=== PATIENT | male | born 1955 | race Caucasian/White ===

== ENCOUNTER → 2020-11-16 11:26 | Outpatient (CLI) | payer OTHER, SELFPAY ==
--- NOTE | 2020-11-16 11:31 | DI.RAD.S_ITS ---
PROCEDURE: XR CERVICAL SPINE 4V OR 5V INDICATIONS: cervical radiculopathy TECHNIQUE: 8 views of the cervical spine acquired. COMPARISON: [facility], CR, XR CERVICAL SPINE 6+ VIEWS, 01/03/2018, 8:34. FINDINGS: Bones: No acute fracture. Straightening of the normal lordotic curvature. Moderate narrowing of the C5-C6 and C6-C7 disc spaces. Multilevel degenerative endplate sclerosis and spurring. Diffuse facet arthropathy. On the left, moderate to severe bony foraminal stenosis at C3-C4, and mild bony foraminal narrowing at C5-C6 and C6-C7. On the right, diffuse mild to moderate bony foraminal narrowing throughout the cervical spine. Soft tissues: No prevertebral soft tissue swelling. IMPRESSION: Straightening of the normal lordotic curvature. Cervical spondylosis and facet arthropathy as above, most pronounced at C5-C6 and C6-C7. Dictated by: Rafi Gracia M.D. on 11/16/2020 at 14:22 Approved by: Rafi Gracia M.D. on 11/16/2020 at 14:24
== END ==
PROVIDERS: PCP Nurse Practitioner; Referring Provider Physical Medicine & Rehabilitation; Visit Provider Physical Medicine & Rehabilitation
DX: M47.22 Other spondylosis with radiculopathy, cervical region (principal)
CPT/HCPCS: 72050; 99214

== ENCOUNTER → 2020-11-26 07:07 | Outpatient (CLI) | payer OTHER, SELFPAY ==
--- NOTE | 2020-11-26 07:08 | DI.MRI.S_ITS ---
PROCEDURE: MR CERVICAL SPINE WO CON INDICATIONS: Left C6-7 Cervical radiculopathy TECHNIQUE: Noncontrast sagittal T1 spin echo and T2 fast spin echo, sagittal STIR, foraminal oblique sagittal T2 fast spin echo, and axial gradient echo or T2 fast spin echo through the cervical spine. COMPARISON: None. FINDINGS: Image quality: Excellent. Alignment and Curvature: There is normal bony alignment. Bone Marrow: Reactive endplate changes noted adjacent to the C6-C7 disc.. Spinal Cord: Visualized spinal cord has normal size and signal. No cerebellar tonsillar herniation. Paraspinous Soft Tissues: No paravertebral masses. Prevertebral soft tissues are normal in thickness. C2-C3: Loss of disc signal. Moderate right and mild left facet hypertrophy. No central stenosis. Mild bilateral neural foraminal narrowing. No neural compression. C3-C4: Loss of disc signal. Mild, diffuse disc bulge. Mild right and moderate left facet hypertrophy. Moderate bilateral uncovertebral joint hypertrophy. Moderate narrowing of the central canal. Severe bilateral neural foraminal narrowing with compression of the exiting C4 nerve roots. C4-C5: Loss of disc signal. Mild, diffuse disc bulge. Small central disc protrusion. Mild right and moderate left facet hypertrophy. Mild bilateral uncovertebral joint hypertrophy. Moderate narrowing of the central canal. Moderate bilateral neural foraminal narrowing. No neural compression. C5-C6: Loss of disc signal and slight loss of disc height. Mild, diffuse disc bulge. Mild bilateral facet hypertrophy. Bilateral uncovertebral joint hypertrophy. Moderate narrowing of the central canal. Severe bilateral neural foraminal narrowing with compression of the exiting C6 nerve roots. C6-C7: Loss of disc signal. Mild, diffuse disc bulge. Mild bilateral facet hypertrophy. Moderate right and mild left uncovertebral joint hypertrophy. Moderate narrowing of the central canal. Severe right and moderate left neural foraminal narrowing with compression of the exiting right C7 nerve root. C7-T1: Normal appearance. IMPRESSION: 1. Multilevel degenerative disc disease. 2. Multilevel facet and uncovertebral arthropathy. 3. No severe central canal narrowing. 4. Severe bilateral C3-C4 and C5-C6 neural foraminal narrowing with compression of the exiting bilateral C4 nerve roots and exiting bilateral C6 nerve roots. Severe right C6-C7 neural foraminal narrowing with compression of the exiting right C7 nerve root. Dictated by: Lisa Pena MD, PhD on 11/26/2020 at 10:34 Approved by: Lisa Pena MD, PhD on 11/26/2020 at 11:27
== END ==
PROVIDERS: PCP Nurse Practitioner; Referring Provider Nurse Practitioner; Visit Provider Physical Medicine & Rehabilitation
DX: M50.11 Cervical disc disorder with radiculopathy, high cervical region (principal); M47.22 Other spondylosis with radiculopathy, cervical region; M48.02 Spinal stenosis, cervical region
CPT/HCPCS: 72141

== ENCOUNTER → 2020-12-14 14:55 | Outpatient (CLI) | payer OTHER, SELFPAY ==
[2020-12-14 16:59] LABS: COVID19 -Nasal RAPID Negative (Negative)
== END ==
PROVIDERS: PCP Nurse Practitioner; Visit Provider Physical Medicine & Rehabilitation
DX: Z01.812 Encounter for preprocedural laboratory examination (principal); Z20.822 Contact with and (suspected) exposure to COVID-19
CPT/HCPCS: 87635; C9803

== ENCOUNTER 2020-12-15 10:48 | Outpatient (CLI) | payer OTHER, SELFPAY ==
[2020-12-15] VITALS (8 sets, daily range): BP systolic 120–149; BP diastolic 75–97; PULSE 82–99; RESP 13–20; TEMP 36.3; O2SAT 95–99
--- NOTE | 2020-12-15 10:50 | DI.RAD.S_ITS ---
PROCEDURE: PAIN C/T INTERLAMINAR INJECT INDICATIONS: SPINAL STENOSIS COMPARISON: [facility], MR, MR CERVICAL SPINE WO CON, 11/26/2020, 7:42. [facility], CR, XR CERVICAL SPINE 4V OR 5V, 11/16/2020, 11:44. FINDINGS: Fluoroscopic spot filming was performed to verify placement of spinal needles at the C6-C7 level(s), as labeled on the films. Appropriate location(s) of the needle tip(s) was confirmed by injection of iodinated contrast. IMPRESSION: Fluoroscopy for pain management. Dictated by: Minor Cantrell M.D. on 12/15/2020 at 13:38 Approved by: Minor Cantrell M.D. on 12/15/2020 at 13:40
[2020-12-15] MEDS: MIDAZOLAM 5 MG/5 ML VIAL IV (11:55)
[2020-12-15] MEDS: fentaNYL 100 MCG/2 ML INJ 50 MCG IV (11:55)
--- NOTE | 2020-12-15 12:19 | P.PCN_ITS ---
Date/Time/Diagnoses Date of procedure: 12/15/20 Time of procedure: 12:19 Pre-procedure diagnosis: 1. CERVICAL STENOSIS, 2. CERVICAL HNP WITH UPPER EXTREMITY RADICULAR FEATURES Post-procedure diagnosis: same Procedure Notes Procedure: 1. FLUORSCOPICALLY GUIDED CONTRAST CONTROLLED INTERLAMINAR EPIDURAL STEROID INJECTION - C6/7 TL KSENIA Indications: Edward is referred by LUIS CARLOS Yuan for treatment of Cervical HNP with Upper Extremity Paresthesias. Physician: Irvin Cain Total Fluoroscopy time (seconds): 37 Total sedation minutes: 19 Complications: none Procedure in detail & Post-procedure care: FINDINGS Cervical Stenosis due to disc deterioration and nerve root irritation and nerve root irritation DESCRIPTION OF PROCEDURE Fluoroscopically guided, contrast-controlled C6/7 translaminar epidural steroid injection with conscious sedation. Following review of allergy and review of potential side effects and complications, including, but not necessarily limited to, infection, allergic reaction, local tissue breakdown, temporary as well as permanent nerve injury, stroke, paralysis, and possible , the patient indicated that patient understood and agreed to proceed. An informed consent document was signed by the patient, witnessed by a nurse, and placed in the patient's chart. Additionally, other treatment options including modalities, medications, and physical therapy were reviewed with the patient. After review of previous anaesthesic history and IV conscious sedation the patient was deemed safe to proceed with today?s procedure with IV conscious sedation as ASA class II designation. Safety time-out was performed to confirm patient ID, procedure to be performed and site of procedure. IV sedation was accomplished with a combination of 2mg of Versed and 50mcg of Fentanyl administered by the RN after DO order, titrated to patient comfort during the course of the procedure while the patient remained responsive to all verbal commands. In the prone position, following sterile prep and drape of the cervical region, the C6/7 translaminar space was identified fluoroscopically. The skin was anesthetized via a 25-gauge 1.5-inch needle with 1% lidocaine solution. At this point, a 25-gauge, 2.5-inch short bevel spinal needle was atraumatically introduced and advanced under fluoroscopic guidance into epidural space at the C6/7 translaminar space. Depth was confirmed on lateral view. Radiological data, including multiple fluoroscopic views of the cervical spine, reveal a spinal needle at the C6/7 translaminar space. Lateral views then show placement of the needle in the epidural space. Subsequent views show contrast material flowing superiorly and inferiorly in the epidural space. DSA fluoroscopy with live contrast injection, once again, confirmed no vascular or intrathecal uptake. At this point, using loss of resistance technique with saline and air, the epidural space was entered. Following negative aspiration, injection of appr oximately 1.5 cc of Isovue-200 with live fluoroscopy in the AP view confirmed epidural flow in the epidural space without vascular or intrathecal uptake observed. Subsequently, a test dose of 1 cc of 1% lidocaine solution was injected and patient was observed for two minutes without signs or symptoms of complications, including abdominal pain, shortness of breath, bilateral upper or lower extremity weakness, nausea and vomiting, prior to steroid injection. At this point, 3cc or 30mg of dexamethasone was then injected without incident. The patient tolerated the procedure well without signs or symptoms of complications prior to being transferred to the recovery area for further monitoring, The patient was then transferred to the recovery area where they were observed for an appropriate period of time after the injection. The patient reported a VAS score of 6 prior to the procedure and a post-procedure VAS of 0. POST OP INSTRUCTIONS The patient was provided a Pain Log to continue to record their response to the target-specific procedure prior to follow-up visit with the referring provider. Additionally, specific post-injection care instructions and a contact number to our office were provided if concerns arise regarding possible complications associated with the procedure are suspected.
[2020-12-15] MEDS: BUPIVACAINE 0.25% (PF) VIAL 2 ML INJ (12:23)
[2020-12-15] MEDS: DEXAMETHASONE 10 MG/ML VIAL 30 MG INJ (12:24)
--- NOTE | 2020-12-15 16:59 | PC.NURSE ---
unable to document isovue administration in NOV due to pharmacy override. pr recieved 3ml during procedure administered by dr ball
== END 2020-12-15 12:40 | disposition home or self-care (01) ==
LOC: RAD 10:49
PROVIDERS: PCP Nurse Practitioner; Referring Provider Physical Medicine & Rehabilitation; Visit Provider Physical Medicine & Rehabilitation
DX: M48.02 Spinal stenosis, cervical region (principal); M50.123 Cervical disc disorder at C6-C7 level with radiculopathy
CPT/HCPCS: 62321; 99152; J1100; J2250; J3010

== ENCOUNTER → 2021-02-15 12:35 | Outpatient (CLI) | payer OTHER, SELFPAY ==
--- NOTE | 2021-02-15 12:36 | DI.RAD.S_ITS ---
PROCEDURE: XR LUMBAR SPINE MIN 4V INDICATIONS: BACK PAIN TECHNIQUE: 5 views of the lumbar spine were acquired, including bilateral oblique views. COMPARISON: None. FINDINGS: Bones: No acute fracture. Multilevel degenerative endplate sclerosis and spurring. Diffuse facet arthropathy. Disc spaces grossly preserved. Mild bilateral hip joint degeneration with associated subchondral sclerosis and spurring. Mild spurring at both SI joints without ankylosis or erosions. Soft tissues: Overlying bowel gas pattern is normal. No suspicious soft tissue calcifications. Oblique images: No pars defects. IMPRESSION: Mild spondylitic changes as above. Diffuse facet arthropathy Dictated by: Rafi Gracia M.D. on 02/15/2021 at 13:53 Approved by: Rafi Gracia M.D. on 02/15/2021 at 13:56
== END ==
PROVIDERS: PCP Nurse Practitioner; Referring Provider Physical Medicine & Rehabilitation; Visit Provider Physical Medicine & Rehabilitation
DX: M54.9 Dorsalgia, unspecified (principal); M47.816 Spondylosis without myelopathy or radiculopathy, lumbar region; M16.0 Bilateral primary osteoarthritis of hip; M47.22 Other spondylosis with radiculopathy, cervical region; M48.062 Spinal stenosis, lumbar region with neurogenic claudication
CPT/HCPCS: 72110; 99214

== ENCOUNTER → 2021-02-20 08:36 | Outpatient (CLI) | payer OTHER, SELFPAY ==
--- NOTE | 2021-02-20 08:38 | DI.MRI.S_ITS ---
PROCEDURE: MR LUMBAR SPINE WO CON INDICATIONS: Lumbar radiculopathy TECHNIQUE: Noncontrast sagittal T1 spin echo and T2 fast echo, sagittal STIR, axial T1 and T2 fast spin echo through the lumbar spine. In cases with scoliosis, additional coronal T2 fast spin echo may be performed. COMPARISON: None. FINDINGS: Image quality: Excellent. Alignment and Curvature: There is normal bony alignment. Bone Marrow: Marrow is of normal overall signal. No acute vertebral body compression fractures. Spinal Cord: Conus medullaris terminates at the T12-L1 level. Visualized cord demonstrates normal signal and size. Paraspinous Soft Tissues: No paravertebral masses. T12-L1: No canal stenosis or foraminal stenosis. L1-L2: No canal stenosis or foraminal stenosis. L2-L3: Mild facet hypertrophy. No canal stenosis or foraminal stenosis. L3-L4: Facet hypertrophy. Borderline canal stenosis. No foraminal stenosis. L4-L5: Mild disc bulge. Facet and ligament hypertrophy. Mild canal stenosis. Right foraminal annulus tear plus mild disc bulge subjacent to the exiting right L4 nerve root. Mild bilateral foraminal narrowing. L5-S1: Right paracentral annulus tear plus disc bulge. Facet hypertrophy. No canal stenosis or foraminal stenosis. IMPRESSION: 1. Multilevel facet arthropathy. 2. Canal stenosis is borderline at L3-L4 and mild at L4-L5. 3. At L4-L5, there is a right foraminal annulus tear plus mild disc bulge subjacent to the exiting right L4 nerve root. Question: Does this patient have right L4 radicular symptoms? Dictated by: Ted Monroy M.D. on 02/22/2021 at 7:58 Approved by: Ted Monroy M.D. on 02/22/2021 at 8:08
== END ==
PROVIDERS: PCP Nurse Practitioner; Referring Provider Physical Medicine & Rehabilitation; Visit Provider Physical Medicine & Rehabilitation
DX: M48.062 Spinal stenosis, lumbar region with neurogenic claudication (principal); M47.26 Other spondylosis with radiculopathy, lumbar region; M51.16 Intervertebral disc disorders with radiculopathy, lumbar region
CPT/HCPCS: 72148

== ENCOUNTER → 2021-04-21 09:47 | Outpatient (CLI) | payer OTHER, SELFPAY ==
[2021-04-21 12:23] LABS: COVID19 -Nasal RAPID Negative (Negative)
== END ==
PROVIDERS: PCP Nurse Practitioner; Visit Provider Nurse Practitioner
DX: Z20.822 Contact with and (suspected) exposure to COVID-19 (principal); Z01.812 Encounter for preprocedural laboratory examination
CPT/HCPCS: 87635

== ENCOUNTER 2021-04-23 08:06 | Inpatient (IN) | payer OTHER, SELFPAY ==
[2021-04-20 08:55] VITALS: BMI 34.4
[2021-04-23] VITALS (20 sets, daily range): BP systolic 107–172; BP diastolic 61–103; PULSE 69–111; RESP 7–18; TEMP 35.8–37.2; O2SAT 89–98; BMI 34.4
[2021-04-23] MEDS: GABAPENTIN 300 MG CAPSULE PO (08:24)
[2021-04-23] MEDS: LACTATED RINGERS 1,000 ML 42 ML IV ×2 (08:24→10:26)
[2021-04-23] MEDS: ACETAMINOPHEN 325 MG TABLET 975 MG PO (08:24)
--- NOTE | 2021-04-23 08:40 | PM.PREOP ---
Pre-operative Note COVID-19 COVID-19 status: Negative Result date/Date tested (Pos, Neg/Pending): 04/21/21 Interval Note History & Physical reviewed/Exam performed by Physician: Yes Changes to H&P: No
[2021-04-23] MEDS: CEFAZOLIN 1 GM VIAL 2 GM IV ×2 (09:13→16:51)
--- NOTE | 2021-04-23 09:36 | SUR.OPER ---
Supine, head on gel donut. Arms padded with gel pads, tucked at sides, towel roll under shoulders, shoulders taped in traction to foot of bed. Safety belt at thigh. Legs uncrossed.
[2021-04-23] MEDS: BUPIVACAINE 0.25% W/ EPI 30 ML VIAL INJ (12:16)
--- NOTE | 2021-04-23 12:27 | DI.RAD.S_ITS ---
PROCEDURE: XR CERVICAL SPINE 2V OR 3V INDICATIONS: C4-5, C5-6, C6-7 ACDF TECHNIQUE: 3 view(s) of the cervical spine were acquired. COMPARISON: [facility], CR, XR CERVICAL SPINE 4V OR 5V, 11/16/2020, 11:44. [facility], MR, MR CERVICAL SPINE WO CON, 11/26/2020, 7:42. FINDINGS: 3 intraoperative fluoroscopy images demonstrate discectomy and anterior fusion at C4-C5, C5-C6 and C6-C7. IMPRESSION: Discectomy and anterior fusion in the lower cervical spine. Dictated by: Minor Cantrell M.D. on 04/23/2021 at 13:06 Approved by: Minor Cantrell M.D. on 04/23/2021 at 13:08
--- NOTE | 2021-04-23 12:27 | P.OP_ITS ---
Operative Date/Time/Diagnoses Date of procedure: 04/23/21 Time of procedure: 09:00 Pre-op diagnosis: 1. C4-5, C5-6, C6-7 spinal stenosis 2. C4-5, C5-6, C6-7 spondylosis with radiculopathy Post-op diagnosis: same Procedure & Clinicians Procedure: 1. C4-5 C5-6 C6-7 anterior cervical diskectomy and fusion 2. C4-5 C5-6 C6-7 anterior interbody cage placement 3. C4-5 C5-6 C6-7 anterior instrumentation with plate and screw placement in C4-C5-C6 and C7 vertebrae 4. Utilization of microsurgical technique and operating microscope Same procedure as scheduled: Yes Indications: Patient has been having chronic neck pain and worsening cervical radiculopathy. Patient failed multiple conservative management with worsening pain weakness and numbness in her upper extremity. Patient has been having difficulty performing activity of daily living. After discussing risks benefits of treatment options, patient elected proceed with surgery. Surgeon: Dc Mehta Radial Drill Press Operator: Anurag Price Anesthesia Type: General Operative Notes Closure Type: primary Specimen(s): none sent Prosthetic devices, grafts, tissues, transplants, or devices: Globus Extend plate, PEEK cages Applied: catheter Estimated Blood Loss (mL): 50 Blood products transfused: none Procedure in detail: Patient was seen in the preoperative area. Risks and benefits of the surgery was discussed with the patient. Operative consent was obtained and placed in the chart. Patient was then taken to the operative room. Prophylactic antibiotic was given less than 0.5 hr prior to skin incision. General anesthesia was administered. Patient was placed into a supine position on her radiolucent table. Bilateral shoulders were taped down to allow proper C- arm imaging. Anterior cervical area was prepped and draped in a sterile fashion. Time-out was performed at this time. Using lateral C-arm imaging, the level between C4 and C7 was identified and marked on patient's neck. A oblique incision from midline towards medial border of sternocleidomastoid muscle was made. The platysma muscle was incised in line with skin incision. Metzenbaum scissor was used to develop the plane between the medial border of sternocleidomastoid d and the strap muscles medially. The carotid sheath and its contents were identified and protected behind the hand- held retractor during the entire case. The plane between the carotid sheath and strap muscles was developed with Metzenbaum scissors. Dissection was made down to the level of the anterior cervical fascia. Longus colli muscle was incised on the anterior aspect of vertebral bodies bilaterally from C4-C7. Spinal needle was placed into the C4-5 disc space and confirmed with lateral C-arm imaging. Using microsurgical technique and operative microscope, anterior cervical diskectomy was performed at C4-5 C5-6 and C6-7 level. This was done by removing the disc material, removing the anterior and posterior osteophytes posterior longitudinal ligaments along with performing bilateral foraminotomies at all 3 levels. Patient was found to have severe central and foraminal stenosis at all 3 levels. Patient's stenosis was fully decompressed after decompression was completed. After the diskectomy was completed, 3 anterior interbody cages were obtained. The cages were packed with globus via cell bone grafting material. One cage each along with the bone grafting material was then packed into the interbody spaces from C4-C7 with one cage into each interbody level. After the cages were placed, the anterior cervical plate was stabilized to the C4-C7 vertebrae using 2 screws at each each level. Total 8 screws were placed. After confirming placement of the hardware with AP and lateral C-arm imaging, the screws were locked into the plate using the locking mechanism and torque limiting screwdriver. After the hardware was placed and confirmed with AP and lateral C-arm imaging, the wound was irrigated with sterile normal saline. The platysma muscle and the subcutaneous tissue was closed with 2-0 Vicryl. The skin was closed with 4-0 Monocryl and Steri-Strips. Patient tolerated the procedure well. Patient was transferred recovery room in stable condition. There were no complications. Complications: none Post-operative Condition: stable Disposition: PACU Plan for aftercare: Admit to inpatient hospital
[2021-04-23] MEDS: OXYCODONE IR 5 MG TABLET PO ×2 (13:36→14:09)
[2021-04-23] MEDS: ONDANSETRON 4 MG/2 ML INJ IV (13:39)
[2021-04-23] MEDS: HYDROMORPHONE 2 MG INJ IV ×2 (13:39→13:47)
--- NOTE | 2021-04-23 14:55 | SUR.PHASEI ---
PACU: REPORT GIVEN TO ROSS Knott OVER THE PHONE. ALL QUESTIONS ANSWERED TO SATISFACTION. PATIENT TRANSF TO RM 213 WITH ALL BELONGINGS ON 2L/NC AND CPAP. TOLERATED WELL. MET ROSS Cevallos AT BEDSIDE FOR FACE TO FACE HANDOFF. VS, SAT STABLE WITH NC AND CPAP IN PLACE. SCD'S ON, BED IN LOW POSITION AND LOCKED. CALL LIGHT IN REACH.
[2021-04-23] MEDS: SODIUM CHLORIDE 0.9% 1,000 ML 100 ML IV (16:50)
[2021-04-23] MEDS: OXYCODONE IR 5 MG TABLET 10 MG PO ×2 (16:51→20:31)
[2021-04-23] MEDS: DOCUSATE 100 MG CAPSULE PO (20:31)
[2021-04-23] MEDS: METFORMIN HCL 500 MG TABLET 1000 MG PO (20:31)
[2021-04-23] MEDS: SENNOSIDES 8.6 MG TABLET 17.2 MG PO (20:31)
[2021-04-23] MEDS: HYDROMORPHONE 0.5 MG INJ IV (23:56)
[2021-04-24] VITALS (8 sets, daily range): BP systolic 120–176; BP diastolic 66–95; PULSE 66–119; RESP 14–18; TEMP 36.1–36.9; O2SAT 89–95
[2021-04-24] MEDS: OXYCODONE IR 5 MG TABLET 10 MG PO ×3 (01:13→11:30)
[2021-04-24] MEDS: CEFAZOLIN 1 GM VIAL 2 GM IV (01:14)
[2021-04-24] MEDS: ACETAMINOPHEN 325 MG TABLET 650 MG PO ×3 (01:14→22:45)
[2021-04-24] MEDS: GABAPENTIN 300 MG CAPSULE 600 MG PO (01:15)
[2021-04-24] MEDS: HYDROMORPHONE 0.5 MG INJ IV ×2 (04:18→06:36)
[2021-04-24] MEDS: lisinopriL 5 MG TABLET PO (08:06)
[2021-04-24] MEDS: GLIMEPIRIDE 2 MG TABLET 4 MG PO (08:06)
[2021-04-24] MEDS: ATORVASTATIN 20 MG TABLET PO (08:07)
[2021-04-24] MEDS: hydrOXYzine pamoate 25 MG CAPSULE PO (08:07)
[2021-04-24] MEDS: DOCUSATE 100 MG CAPSULE PO ×2 (08:07→22:45)
[2021-04-24] MEDS: METFORMIN HCL 500 MG TABLET 1000 MG PO ×2 (08:07→22:45)
--- NOTE | 2021-04-24 09:10 | CM.DANOTE ---
Addendum entered by Svetlana Piedra LPN 04/25/21 12:25: A check in this morning shows that pt was not cleared yesterday for d/c and the d/c order was cancelled. Pt today doing much better. [facility] worked with him this morning and has cleared him for home setting. Dr. Mehta has been here and ok'd the d/c. P: home with support from Kellie. She will pick him up today. Addendum entered by Svetlana Piedra LPN 04/24/21 10:07: Orth[facility] is here and has ok'd pt for d/c to home today when cleared by PT. PT and OT are ordered and will be seeing pt this morning as per discussion with therapy team in R[place]. Addendum entered by Svetlana Piedra LPN 04/24/21 09:18: Met with pt briefly;introduced self and role. Pt is found lying in bed, breakfast tray in front of him. Appears groggy. Says he has not been out of bed since the surgery. He does confirm his plan and says Kellie will be picking him up. She will come when I call her. P: home when stable for same with support as noted. Will follow prn Insurance: [employer] Care Plan Service [facility] Admission status: in review: per [facility] [place] Original Note: Discharge Planning/Care Management DCP: assessment: case received, EMR reviewed. Pt is a 66 year old male who admits 04/23 for a scheduled spinal/cervical surgery. Surgeon: Dr. Mehta No therapy notes are yet available. Will check in with pt and confirm his pre-op plan of home with support of his sister and his spouse (legally ) Kellie. CM Discharge Assessment Start: 04/24/21 09:08 Freq: Status: Active Protocol: Document 04/24/21 09:08 ITV (Rec: 04/24/21 09:09 ITV [id number]) Discharge Planning Assessment Advance Directives? Yes Advance Directives on File No History Provided By Medical Record Has Patient been admitted in last 30 No days? Prior Living Arrangements RV Household Members none Review Status In Process Pre-Anesthesia Assessment Start: 04/20/21 08:55 Freq: Status: Complete Protocol: Document 04/20/21 08:55 CAB (Rec: 04/20/21 09:39 [facility] [id number]) Pre-Anesthesia Assessment Preferred Name Bill Patient Information Reviewed Via Phone Assessment Assessment Completed With Patient H&P Completed Within 30 Days Yes Comment Labs/EKG done, not here, surgeon has, COVID screen- needs to schedule Primary Care Provider Suman Yuan Seen Specialist in Last 12 Months Yes Specialist Seen Orthopedist,Urologist,Other Comment Pain specialist Primary Language Maori Asbestos Abatement Technician Required No Height 177.8 cm Weight 108.862 kg Body Mass Index (BMI) 34.4 Hearing Ability Hard of Hearing,Use of Hearing Aid Visual Assist None Dentition Type Teeth, Natural Present Barriers to Learning Auditory Other Aids Yes: CPAP Hx Anesthesia Reactions No Hx Family Anesthesia Reaction No Hx Malignant Hyperthermia No Hx Blood Transfusions No Anesthesia Review Requested No alcohol intake current alcohol intake frequency holidays/special occasions only Smoking Status Former smoker how long ago did patient quit smoking Quit approx 2013 Substance Use Type does not use Pain Present Pain Reported Musculoskeletal Symptoms Abnormal Gait,Back Pain, Difficulty Walking,Joint Pain, Limited Range of Motion,Neck Pain,Numbness,Radiating Pain into Limb,Tingling History of Falling (Recent or History of No ) Patient is completely paralyzed or No completely immobile Mental Status Oriented to own ability Is patient on oxygen? No Does patient have WATT/SOB No Hx Sleep Apnea Yes CPAP/BIPAP use prescribed and used routinely Will Bring CPAP/BIPAP DOS Yes Currently Taking a Beta [place] No Can You Climb a Flight of Stairs Without No: Pt feels r/t SOB deconditioning, pain Hx Chest Pain No Hx SOB No Hx Syncope or Dizziness No Anti-Coagulant Therapy No Has a Income Tax Manager No Cardiac Testing No Hx Pacemaker/ICD No Pacemaker Rep Required? No Diet Type At Home Regular dysphagia No Urinary Catheter Present No Hx Urinary Self Catheterization No Diabetes Yes HgbA1C 6.2 Comment A1c per pt Hx Drug Resistant Organism No Presence of External or Internal Medical Yes: CPAP, bilat eye lens, Devices hearing aids Have you had any close contact with No someone diagnosed with COVID-19? Marital Status Lives With none Prior Living Arrangements RV Support System Sibling(s),Spouse Does the Patient Have Assistance After Yes: Sister and available Surgery to assist w/care at DC Patient Discharge Plan Description Return Home Comment Pt not advised on length of stay per surgeon Feels Safe in Current Environment Yes Been Physically Hurt or Threatened By a No Person in Current Environment Do you have thoughts of harming yourself None or others? Are you currently considering suicide? No Do you have a plan to hurt yourself or No Plan others? Do You Have Any Spiritual Beliefs That No May Affect Your HC Choices? Do You Have Any Cultural Practices That No May Affect Your HC Choices? Comment Mosque Who Can We Speak to About Patient's Care Family, friends Identifying Code for Release of Patient Declines to issue Information Health Care Proxy/Next of Kin Ramy (sister) Health Care Proxy Emergency Contact Name Kellie (-currently ) Emergency Contact Advance Directives? Yes Advance Directives on File No Requested Patient Bring Advanced Yes Directives DOS Power of Medical Staff Assistant Yes Power of Medical Staff Assistant Name Ramy (sister) Power of Medical Staff Assistant PAC Instructions Bring CPAP/BIPAP,Diabetes instructions,Durable medical equipment,Medications to take/ avoid,Nasal antibiotic,No ETOH /petroleum product on skin DOS ,NPO,Post-op transportation, Pre-surgical wash,Sensory aids ,Sturdy shoes/comfortable clothes,Do not bring valuables and remove jewelry
--- NOTE | 2021-04-24 09:20 | PC.NURSE ---
checked patients BS at 7:30 and it was 190
--- NOTE | 2021-04-24 09:44 | PM.DS.1 ---
History of Present Illness History of Present Illness Date Patient Seen: 04/24/21 Time Patient Seen: 09:44 Chief complaint: Neck pain Narrative: The patient is complaining of moderate neck pain this morning, we are changing his pain medications to better control his pain. He denies any fevers, chills, night sweats. He denies any numbness or tingling in his bilateral upper extremities. He has not worked with physical therapy yet. Overall he is feeling okay and would like to discharge home today if he is safe. He is having some difficulty swallowing but is able to tolerate oral liquids. Discharge Providers Provider Date of admission: 04/23/21 08:06 Discharge Date: 04/24/21 Primary care physician: SKYLER Hudson Consults: 04/23/21 14:52 Consult to Occupational Therapy Evaluate & Treat Comment: Physician Instructions: Evaluate and treat Consult to Physical Therapy Evaluate & Treat Comment: Physician Instructions: Evaluate and Treat Discharge provider: Savanna Ragsdale PA-C Summary Hospital Course Discharge Diagnosis: 1. C4-5, C5-6, C6-7 spinal stenosis 2. C4-5, C5-6, C6-7 spondylosis with radiculopathy Hospital Course: 1. C4-5 C5-6 C6-7 anterior cervical diskectomy and fusion 2. C4-5 C5-6 C6-7 anterior interbody cage placement 3. C4-5 C5-6 C6-7 anterior instrumentation with plate and screw placement in C4-C5-C6 and C7 vertebrae 4. Utilization of microsurgical technique and operating microscope Same procedure as scheduled: Yes Indications: Patient has been having chronic neck pain and worsening cervical radiculopathy. Patient failed multiple conservative management with worsening pain weakness and numbness in her upper extremity. Patient has been having difficulty performing activity of daily living. After discussing risks benefits of treatment options, patient elected proceed with surgery. Surgeon: Dc Mehta Estimator Project Manager: Anurag Price Anesthesia Type: General Operative Notes Closure Type: primary Specimen(s): none sent Prosthetic devices, grafts, tissues, transplants, or devices: Globus Extend plate, PEEK cages Applied: catheter Estimated Blood Loss (mL): 50 Blood products transfused: none Status at Discharge Cognitive/behavioral status at discharge: oriented Functional status at discharge: independent ambulation Overall status at discharge: patient is progressing back to baseline Exam Vital Signs (past 8 hours): - 04/24/21 04:05 08/21/21 07:19 04/24/21 08:06 Temperature 98.1 F 97.0 F L Pulse Rate 110 H 97 H Respiratory Rate 16 14 Blood Pressure 176/95 H 149/86 H 149/86 H Pulse Oximetry 92 92 Oxygen Delivery Method Nasal Cannula,CPAP Oxygen Flow Rate 0 Narrative Exam Narrative: This 66-year-old male, resting comfortably in bed, no acute distress. Incision is clean, dry, intact. Bilateral upper extremities with normal motor function. Sensation is intact grossly to light touch in bilateral upper extremities. Soft cervical collar is in place. [facility] Medical History Arthritis BPH w urinary obs/LUTS Cervical radiculopathy Degenerative tear of acetabular labrum of left hip Depression Diabetes Facet arthropathy, cervical Glucosuria Greater trochanteric bursitis of right hip Hearing impaired HLD (hyperlipidemia) HTN (hypertension) Kidney stones Lumbar stenosis with neurogenic claudication WOODY on CPAP Sciatica Surgical History H/O elbow surgery H/O hand surgery H/O shoulder surgery H/O: knee surgery History of arthroscopy of left shoulder History of bunionectomy of right great toe History of foot surgery History of surgery History of vasectomy Hx of bilateral cataract extraction Hx of colonoscopy Hx of nasal septoplasty Family History Father Stroke Mother Congestive heart failure Sister Cancer Social History household members: none Smoking Status: Former smoker alcohol intake: current Discharge Assessment & Plan Assessment and Plan Assessment: Patient is progressing as expected status post cervical fusion Plan of Treatment: Limit bending, twisting, lifting. Patient was given p.o. Dilaudid for severe pain and oxycodone for moderate pain and Tylenol for mild pain. The plan is to discharge home today when cleared by Physical therapy Discharge Plan Discharge Plan Patient Disposition: Home Discharge orders & Medications Prescriptions: New acetaminophen 500 mg capsule 500 mg PO Q4-6H MDD 6 tabs PRN (Reason: Pain, Mild (1-3)) Qty: 90 RF: 0 docusate sodium [DOK] 100 mg Capsule 100 mg PO BID PRN (Reason: constipation) Qty: 60 RF: 0 oxycodone 5 mg Tablet 5 - 10 mg PO Q3-6H PRN (Reason: moderate pain) Qty: 42 RF: 0 hydroxyzine pamoate 25 mg Capsule 25 mg PO Q4HR PRN (Reason: muscle spasms) Qty: 60 RF: 0 hydromorphone [Dilaudid] 2 mg tablet 2 mg PO Q4-6H PRN (Reason: severe pain (scale score 7-10)) Qty: 14 RF: 0 Continued gabapentin 300 mg capsule 300 mg PO .COMPLEX Qty: 90 RF: 2 glimepiride 4 mg Tablet 4 mg PO QAM RF: 0 lisinopril 5 mg Tablet 5 mg PO DAILY RF: 0 metformin 1,000 mg tablet 1,000 mg PO BID RF: 0 atorvastatin 20 mg tablet 20 mg PO DAILY RF: 0 aspirin [Adult Low Dose Aspirin] 81 mg tablet,delayed release (DR/EC) 81 mg PO DAILY RF: 0 Follow up/Referrals: Suman Yuan FNP-C [Primary Care Provider] - Dc Mehta MD [Physician] - (2 weeks for postop visit) Diet/Activity/Treatments Diet: Diet as Tolerated and Regular Activity: Limit bending, twisting, lifting. Cold/Heat Therapy: Use ice as needed for pain control Skin/Wound/Dressing Care Report to your healthcare provider any signs of infection, such as:: chills, fever, night sweats, unusual drainage and unusual redness Dressing: Okay to shower 48 hours after surgery. Please change the dressing if it becomes saturated, wet, soiled. Visit Report/Discharge Packet Instructions: DI for Prescription Opioid Use, DI for Anterior Cervical Discectomy and Fusion Stand Alone Forms: Surgery Discharge Discharge Data Primary Care Provider: Suman Yuan Quality VTE Deep Vein Thrombosis/Pulmonary Embolism Present on Admission: No
--- NOTE | 2021-04-24 10:46 | OT.IP.EVAL ---
Current Diagnoses Other spondylosis with radiculopathy, cervical region (04/23/21) Spinal stenosis, cervical region (04/23/21) Surgery Performed Operation Date: 04/23/21 13:15 Actual Procedures p C4-5, C5-6, C6-7 ACDF w/anterior instrumentation - Dc Mehta MD Past Medical History (Last Reviewed 04/24/21 @ 09:48 by Savanna Ragsdale PA-C) Arthritis BPH w urinary obs/LUTS Cervical radiculopathy Degenerative tear of acetabular labrum of left hip Depression Diabetes Facet arthropathy, cervical Glucosuria Greater trochanteric bursitis of right hip H/O elbow surgery H/O hand surgery H/O shoulder surgery H/O: knee surgery Hearing impaired History of arthroscopy of left shoulder History of bunionectomy of right great toe History of foot surgery History of surgery History of vasectomy HLD (hyperlipidemia) HTN (hypertension) Hx of bilateral cataract extraction Hx of colonoscopy Hx of nasal septoplasty Kidney stones Lumbar stenosis with neurogenic claudication WOODY on CPAP Sciatica Surgical History (Last Reviewed 04/24/21 @ 09:48 by Savanna Ragsdale PA-C) H/O elbow surgery H/O hand surgery H/O shoulder surgery H/O: knee surgery History of arthroscopy of left shoulder History of bunionectomy of right great toe History of foot surgery History of surgery History of vasectomy Hx of bilateral cataract extraction Hx of colonoscopy Hx of nasal septoplasty Occupational Therapy Inpatient Evaluation/Re-Eval M1 PT/OT-IP Prior Functional Status Start: 04/24/21 12:54 Freq: NEEDED Status: Active Protocol: Document 04/24/21 11:20 AB (Rec: 04/24/21 13:07 [id number]) Medical Review Prior Functional Status Medical History Reviewed Yes Communication able to make needs known Mobility and Gait pt stated that he is independent with alll mobilties and ambulation without AD Social History Household Members spouse Living Arrangements Mobile home Number of Floors (Floors) One Floor Number of Stairs To Enter/Railing? pt lives on a trailer: 5th wheel has 3 steps with L rail to enter 3 steps without rails to get up to the bedroom Home Environment Standard Height Toilet,Walk in Shower Home Equipment Hand Held Shower M2 OT-IP Current Condition Start: 04/24/21 13:34 Freq: Status: Active Protocol: Document 04/24/21 10:05 [facility] (Rec: 04/24/21 13:46 [facility] [id number]) Occupational Therapy Current Condition Current Condition Evaluation Date 04/24/21 Treatment Diagnosis s/p C4-5, C5-6, C6-7 ACDF Diagnosis Onset Date 04/23/21 Post Operative Precautions Cervical Spine Precautions Soft Collar for Comfort,No Heavy Lifting,Log Roll M3 OT- IP Subjective and Pain Start: 04/24/21 13:34 Freq: Status: Active Protocol: Document 04/24/21 10:05 [facility] (Rec: 04/24/21 13:46 [facility] [id number]) OT- Subjective Occupational Therapy Visit Type Type Initial Evaluation Visit Start Time 10:05 Visit Stop Time 10:46 Total Visit Minutes 41 Occupational Therapy Visit Comments Patient Comments Pt agreed to get up for OT eval. Patient/Caregiver Goals TO go home. OT Pain Assessment Pain When Pain Assessed At Rest Pain Present Pain Present Pain Reported Location Bilateral Neck Intensity 8 Scale Used Numeric (0 - 10) M4 OT- IP ADL's Start: 04/24/21 13:34 Freq: Status: Active Protocol: Document 04/24/21 10:05 [facility] (Rec: 04/24/21 13:46 [facility] [id number]) OT [id number] Comments OT Self-Feeding Comments Educated pt on information for eating and swallowing after ACDF. OT ADL-Grooming General Evaluation Grooming Ability Standby Assistance OT ADL-Oral Care General Eval Oral Care Ability Standby Assistance Comments Oral Care Comments Educated to lean forwards or just spit in to a cup. OT ADL-Dressing General Eval Lower Body Dressing Ability Standby Assistance Comments OT Dressing Comments Pt able to comfortably cross his legs in order to do LB dressing needs. ABle to educated pt to gary/doff the soft collar and pt able to show good safety. OT ADL-Toileting General Evaluation Toileting Ability Standby Assistance Comments OT Toileting Comments Pt able to stand to urinate. OT ADL-Bathing Comments OT Bathing Comments Pt states to shower at home. Suggetsed possible use of shower chair for safety or at least to have hus present. M5 OT- IP IADL's Start: 04/24/21 13:34 Freq: Status: Active Protocol: Document 04/24/21 10:05 [facility] (Rec: 04/24/21 13:46 [facility] [id number]) OT-Instrumental Activities of Daily Living Home Safety Awareness Home Safety Comments Pt a little groggy, therefore would be best for pt's to provide assist and supervision as needed initially. M6 OT- IP Functional Cognition Start: 04/24/21 13:34 Freq: Status: Active Protocol: Document 04/24/21 10:05 [facility] (Rec: 04/24/21 13:46 [facility] [id number]) Cognitive Factors Limiting Selfcare Function Cognitive Ability Level of Alertness Alert,Drowsy Patient Orientation Name,Age,Birthday,Month,Date, Year,Day of Week,Place, Situation Attention Span Ability Capable of Focused Attention, Capable of Sustained Attention Ability to Follow Commands Able to Follow One Step Commands Memory Description No Deficits Noted Safety Awareness Underestimates Need for Assistance Cognitive Comments Cognitive Assessment Comments Pt a little groggy and needing reminders to slow down and for safety awareness. OT- Vision and Hearing OT- Hearing Assessment OT- Hearing Assessment WFL OT- Vision Assessment Visual Acuity WFL M7 OT- IP Mobility and Balance Start: 04/24/21 13:34 Freq: Status: Active Protocol: Document 04/24/21 10:05 [facility] (Rec: 04/24/21 13:46 [facility] [id number]) OT- Bed Mobility Assessment Supine to Sit Supine to Sit Assist Standby Assistance OT-Transfer Assessment Sit to and From Stand Sit to and from Stand Contact Guard Assistance Transfers Transfer Ability Standby Assistance,Contact Guard Assistance Technique Transfer Destination Bed,Chair Devices Transfer Assistive Devices None,Gait Belt Comments Mobility Comments Pt initially CGA while on his feet but after moving in his room close SBA. Pt has good awareness to use the call light before getting up at this time as pt is very groggy. OT- Balance Assessment Sitting Balance and Reactions Static Sitting Balance Ability Normal Dynamic Sitting Balance Ability Good Standing Balance and Reactions Static Standing Balance Ability Fair M8 OT- IP Objective Assessments Start: 04/24/21 13:34 Freq: Status: Active Protocol: Document 04/24/21 10:05 [facility] (Rec: 04/24/21 13:46 [facility] [id number]) OT Gross Range of Motion Upper Extremity Range of Motion Assessment Within Functional Limits M9 OT- IP Assessment and Plan Start: 04/24/21 13:34 Freq: Status: Active Protocol: Document 04/24/21 10:05 [facility] (Rec: 04/24/21 13:46 [facility] [id number]) OT Summary Assessment and Plan Potential Rehabilitation Potential Good Analytic Complexity at Evaluation Low Goals Dressing Goal Independent Toileting Goal Independent Bathing Goal Independent Toilet Transfer Goal Independent Shower Transfer Goal Independent Days to Meet Goals 1 Frequency of Treatment Frequency Of Treatment Once a Day Treatment Plan OT Treatment Plan ADL Training,Functional Cognition Training,Functional Mobility,Patient/Family Education,Discharge Planning Other Treatment Recommendations and Next shower if still here Treatment Focus Discharge Recommendations OT Discharge Recommendations Home with Assistance Home Equipment Needs shower chair Transportation Needs at Discharge Private Vehicle
--- NOTE | 2021-04-24 11:20 | OT.IP.EVAL ---
Addendum entered and electronically signed by Joanna Hansen OT 04/24/21 14:08: Treatment for OT eval time from [id number]. Original Note: Current Diagnoses Other spondylosis with radiculopathy, cervical region (04/23/21) Spinal stenosis, cervical region (04/23/21) Surgery Performed Operation Date: 04/23/21 13:15 Actual Procedures p C4-5, C5-6, C6-7 ACDF w/anterior instrumentation - Dc Mehta MD Past Medical History (Last Reviewed 04/24/21 @ 09:48 by Savanna Ragsdale PA-C) Arthritis BPH w urinary obs/LUTS Cervical radiculopathy Degenerative tear of acetabular labrum of left hip Depression Diabetes Facet arthropathy, cervical Glucosuria Greater trochanteric bursitis of right hip H/O elbow surgery H/O hand surgery H/O shoulder surgery H/O: knee surgery Hearing impaired History of arthroscopy of left shoulder History of bunionectomy of right great toe History of foot surgery History of surgery History of vasectomy HLD (hyperlipidemia) HTN (hypertension) Hx of bilateral cataract extraction Hx of colonoscopy Hx of nasal septoplasty Kidney stones Lumbar stenosis with neurogenic claudication WOODY on CPAP Sciatica Surgical History (Last Reviewed 04/24/21 @ 09:48 by Savanna Ragsdale PA-C) H/O elbow surgery H/O hand surgery H/O shoulder surgery H/O: knee surgery History of arthroscopy of left shoulder History of bunionectomy of right great toe History of foot surgery History of surgery History of vasectomy Hx of bilateral cataract extraction Hx of colonoscopy Hx of nasal septoplasty Occupational Therapy Inpatient Evaluation/Re-Eval M1 PT/OT-IP Prior Functional Status Start: 04/24/21 12:54 Freq: NEEDED Status: Active Protocol: Document 04/24/21 11:20 AB (Rec: 04/24/21 13:07 AB [id number]) Medical Review Prior Functional Status Medical History Reviewed Yes Communication able to make needs known Mobility and Gait pt stated that he is independent with all mobilities and ambulation without AD Social History Household Members spouse Living Arrangements Mobile home Number of Floors (Floors) One Floor Number of Stairs To Enter/Railing? pt lives on a trailer: 5th wheel has 3 steps with L rail to enter 3 steps without rails to get up to the bedroom Home Environment Standard Height Toilet,Walk in Shower Home Equipment Hand Held Shower M2 OT-IP Current Condition Start: 04/24/21 13:34 Freq: Status: Active Protocol: Document 04/24/21 10:05 [facility] (Rec: 04/24/21 13:46 [facility] [id number]) Occupational Therapy Current Condition Current Condition Evaluation Date 04/24/21 Treatment Diagnosis s/p C4-5, C5-6, C6-7 ACDF Diagnosis Onset Date 04/23/21 Post Operative Precautions Cervical Spine Precautions Soft Collar for Comfort,No Heavy Lifting,Log Roll M3 OT- IP Subjective and Pain Start: 04/24/21 13:34 Freq: Status: Active Protocol: Document 04/24/21 10:05 [facility] (Rec: 04/24/21 13:46 [facility] [id number]) OT- Subjective Occupational Therapy Visit Type Type Initial Evaluation Visit Start Time 1047 Visit Stop Time 1120 Total Visit Minutes 33 Occupational Therapy Visit Comments Patient Comments Pt agreed to get up for OT eval. Patient/Caregiver Goals TO go home. OT Pain Assessment Pain When Pain Assessed At Rest Pain Present Pain Present Pain Reported Location Bilateral Neck Intensity 8 Scale Used Numeric (0 - 10) M4 OT- IP ADL's Start: 04/24/21 13:34 Freq: Status: Active Protocol: Document 04/24/21 10:05 [facility] (Rec: 04/24/21 13:46 [facility] [id number]) OT [id number] Comments OT Self-Feeding Comments Educated pt on information for eating and swallowing after ACDF. OT ADL-Grooming General Evaluation Grooming Ability Standby Assistance OT ADL-Oral Care General Eval Oral Care Ability Standby Assistance Comments Oral Care Comments Educated to lean forwards or just spit in to a cup. OT ADL-Dressing General Eval Lower Body Dressing Ability Standby Assistance Comments OT Dressing Comments Pt able to comfortably cross his legs in order to do LB dressing needs. ABle to educated pt to gary/doff the soft collar and pt able to show good safety. OT ADL-Toileting General Evaluation Toileting Ability Standby Assistance Comments OT Toileting Comments Pt able to stand to urinate. OT ADL-Bathing Comments OT Bathing Comments Pt states to shower at home. Suggested possible use of shower chair for safety or at least to have his present. M5 OT- IP IADL's Start: 04/24/21 13:34 Freq: Status: Active Protocol: Document 04/24/21 10:05 [facility] (Rec: 04/24/21 13:46 [facility] [id number]) OT-Instrumental Activities of Daily Living Home Safety Awareness Home Safety Comments Pt a little groggy, therefore would be best for pt's to provide assist and supervision as needed initially. M6 OT- IP Functional Cognition Start: 04/24/21 13:34 Freq: Status: Active Protocol: Document 04/24/21 10:05 [facility] (Rec: 04/24/21 13:46 [facility] [id number]) Cognitive Factors Limiting Selfcare Function Cognitive Ability Level of Alertness Alert,Drowsy Patient Orientation Name,Age,Birthday,Month,Date, Year,Day of Week,Place, Situation Attention Span Ability Capable of Focused Attention, Capable of Sustained Attention Ability to Follow Commands Able to Follow One Step Commands Memory Description No Deficits Noted Safety Awareness Underestimates Need for Assistance Cognitive Comments Cognitive Assessment Comments Pt a little groggy and needing reminders to slow down and for safety awareness. OT- Vision and Hearing OT- Hearing Assessment OT- Hearing Assessment WFL OT- Vision Assessment Visual Acuity WFL M7 OT- IP Mobility and Balance Start: 04/24/21 13:34 Freq: Status: Active Protocol: Document 04/24/21 10:05 [facility] (Rec: 04/24/21 13:46 [facility] [id number]) OT- Bed Mobility Assessment Supine to Sit Supine to Sit Assist Standby Assistance OT-Transfer Assessment Sit to and From Stand Sit to and from Stand Contact Guard Assistance Transfers Transfer Ability Standby Assistance,Contact Guard Assistance Technique Transfer Destination Bed,Chair Devices Transfer Assistive Devices None,Gait Belt Comments Mobility Comments Pt initially CGA while on his feet but after moving in his room close SBA. Pt has good awareness to use the call light before getting up at this time as pt is very groggy. OT- Balance Assessment Sitting Balance and Reactions Static Sitting Balance Ability Normal Dynamic Sitting Balance Ability Good Standing Balance and Reactions Static Standing Balance Ability Fair M8 OT- IP Objective Assessments Start: 04/24/21 13:34 Freq: Status: Active Protocol: Document 04/24/21 10:05 [facility] (Rec: 04/24/21 13:46 [facility] [id number]) OT Gross Range of Motion Upper Extremity Range of Motion Assessment Within Functional Limits M9 OT- IP Assessment and Plan Start: 04/24/21 13:34 Freq: Status: Active Protocol: Document 04/24/21 10:05 [facility] (Rec: 04/24/21 13:46 [facility] [id number]) OT Summary Assessment and Plan Potential Rehabilitation Potential Good Analytic Complexity at Evaluation Low Goals Dressing Goal Independent Toileting Goal Independent Bathing Goal Independent Toilet Transfer Goal Independent Shower Transfer Goal Independent Days to Meet Goals 1 Frequency of Treatment Frequency Of Treatment Once a Day Treatment Plan OT Treatment Plan ADL Training,Functional Cognition Training,Functional Mobility,Patient/Family Education,Discharge Planning Other Treatment Recommendations and Next shower if still here Treatment Focus Discharge Recommendations OT Discharge Recommendations Home with Assistance Home Equipment Needs shower chair Transportation Needs at Discharge Private Vehicle
--- NOTE | 2021-04-24 11:20 | PT.IIE ---
Current Diagnoses Other spondylosis with radiculopathy, cervical region (04/23/21) Spinal stenosis, cervical region (04/23/21) Surgery Performed Operation Date: 04/23/21 13:15 Actual Procedures p C4-5, C5-6, C6-7 ACDF w/anterior instrumentation - Dc Mehta MD Medical History (Last Reviewed 04/24/21 @ 09:48 by Savanna Ragsdale PA-C) Arthritis BPH w urinary obs/LUTS Cervical radiculopathy Degenerative tear of acetabular labrum of left hip Depression Diabetes Facet arthropathy, cervical Glucosuria Greater trochanteric bursitis of right hip Hearing impaired HLD (hyperlipidemia) HTN (hypertension) Kidney stones Lumbar stenosis with neurogenic claudication WOODY on CPAP Sciatica Physical Therapy Inpatient Evaluation/Re-Eval M1 PT/OT-IP Prior Functional Status Start: 04/24/21 12:54 Freq: NEEDED Status: Active Protocol: Document 04/24/21 11:20 AB (Rec: 04/24/21 13:07 AB [email or web address]) Medical Review Prior Functional Status Medical History Reviewed Yes Communication able to make needs known Mobility and Gait pt stated that he is independent with alll mobilties and ambulation without AD Social History Household Members spouse Living Arrangements Mobile home Number of Floors (Floors) One Floor Number of Stairs To Enter/Railing? pt lives on a trailer: 5th wheel has 3 steps with L rail to enter 3 steps without rails to get up to the bedroom Home Environment Standard Height Toilet,Walk in Shower Home Equipment Hand Held Shower M2 PT-IP Current Condition Start: 04/24/21 12:54 Freq: NEEDED Status: Active Protocol: Document 04/24/21 11:20 AB (Rec: 04/24/21 13:07 AB [email or web address]) Physical Therapy Current Condition Current Condition Evaluation Date 04/24/21 Treatment Diagnosis s/p C4-7 ACDF; difficulty in walking Precautions Cervical Spine Precautions Soft Collar for Comfort,No Heavy Lifting,Log Roll Other Precautions falls, O2 sat M3 PT-IP Subjective Start: 04/24/21 12:54 Freq: NEEDED Status: Active Protocol: Document 04/24/21 11:20 AB (Rec: 04/24/21 13:07 AB [email or web address]) Subjective Physical Therapy Visit Type Type Initial Evaluation Visit Start Time 11:20 Visit Stop Time 11:55 Total Visit Minutes 35 Number of ROCK DUSTER Visits 0 Physical Therapy Visit Comments Patient Comments pt is agreeable to do PT but is very drowsy Therapy Pain Assessment Pain When Pain Assessed At Rest Pain Present Pain Present Pain Reported Location Bilateral Neck Intensity 5 Scale Used Numeric (0 - 10) Pain Management Techniques Modification of Treatment,Re- positioning,Timing of Activity with Medications M4 PT-IP Mobility and Gait Start: 04/24/21 12:54 Freq: NEEDED Status: Active Protocol: Document 04/24/21 11:20 AB (Rec: 04/24/21 13:07 AB [id number]) PT-Bed Mobility Assessment Rolling Type of Rolling Log Rolling Level of Assist Standby Assistance Supine to Sit Supine to Sit Standby Assistance Sit to Supine Sit to Supine Standby Assistance PT-Transfer Assessment Sit to and From Stand Sit to and from Stand Standby Assistance Equipment Transfer Assistive Device None,Gait Belt Orthotic/Prosthetic Devices or Brace: Yes Transfers Transfer Destination Chair Transfer Technique Stand Step Pivot Transfer Ability Level of Assist Standby Assistance,1 Person Assistance,Use of Upper Extremities Comments Mobility Comments reviewed precautions with pt and needs cues. completed step transfer to bed SBA and completed bed mobility sit<> supine log roll SBA. cues to stay awake as pt is drowsy but able to follow directions. O2 sat 89-90% at room air. cued to take deep breaths: O2 sat 90-91%. pt ambulated in room without AD ~ 15 ft CGA and agreed to ambulate in the hallway and acompleted ~ 100 ft without AD CGA and cues. (+) LOB x 3 and with difficulty walking a straight path. completed up/ down stair using L rail CGA. ambulated back to the room CGA and cues. pt sat on chair. O2 sat checked: 71%. push call button. instructed pt to take deep breaths but O2 sat did not increase much. O2 provided 2 L/min and cued to take deep breaths again and O2 sat increased to ~ 89% in > 1min . Nurse is aware. pt sitting on chair. call light and table placed within reach. Gait Assessment Gait Gait Assistance Required: Contact Guard Assist Distance (Feet) 100 Able to Maintain Weight Bearing Status Yes During Gait Assistive Devices Assistive Device None,Gait Belt Orthotic/Prosthetic Devices or Brace: Yes Gait Deviations General Gait Pattern Ataxic,Decreased Stride Length ,Decreased Feet Clearance,Step -to Gait Factors Limiting Gait Function Factors Limiting Gait Function Decreased Activity Tolerance, Decreased Strength,Difficulty Following Directions,Limited Range of Motion,Pain,Poor Balance,Poor Safety Awareness, Respiratory Distress Stair Climbing Assessment Evaluation Level of Assist On Stairs Contact Guard Assistance Devices Stair Climbing Assistive Devices Left Railing Technique/Endurance Stair Climbing Direction Ascend and Descend Stair Climbing Technique Step to Step Number of Steps Climbed 3 Query Text: Stair Climbing Set # Repetitions (reps) 1 PT-Balance Assessment Sitting Balance and Reactions Static Sitting Balance Ability Good Dynamic Sitting Balance Ability Good Standing Balance and Reactions Static Standing Balance Ability Good Dynamic Standing Balance Ability Fair Device Used without AD M5 PT-IP Objective Assessments Start: 04/24/21 12:54 Freq: NEEDED Status: Active Protocol: Document 04/24/21 11:20 AB (Rec: 04/24/21 13:07 AB [email or web address]) Orientation Orientation/Cognition Level of Alertness Lethargic Orientation Name,Place,Situation Safety Awareness Decreased Safety Awareness Memory Description Short Term Impaired Gross Range of Motion Lower Extremity ROM Assessment Within Functional Limits Strength Lower Extremity Strength Assessment Within Functional Limits Coordination Assessment Gross Coordination Gross Coordination WNL Muscle Tone Muscle Tone WNL Yes M6 PT-IP Treatment Start: 04/24/21 12:54 Freq: NEEDED Status: Active Protocol: Document 04/24/21 11:20 AB (Rec: 04/24/21 13:07 AB [email or web address]) Physical Therapy Treatment Education Education Provided Precautions,Weight Bearing Status,Safety M7 PT-IP Assessment and Plan Start: 04/24/21 12:54 Freq: NEEDED Status: Active Protocol: Document 04/24/21 11:20 AB (Rec: 04/24/21 13:07 AB [email or web address]) PT Summary Assessment and Plan Potential Rehabilitation Potential Fair Status of Condition at Evaluation Evolving Summary Impairments Pain,ROM,Strength,Balance, Coordination,Sensation,Tone, Cognition,Bed Mobility, Transfers,Gait,Activity Tolerance Assessment Summary pt requiring CGA with ambulation without AD but with (+) LOB requiring CGA for recovery and max cues. pt is lethargic and has a decrease in O2 sat with mobility to 71% at room air needing O2 to stabilize O2 sat. will continue to assess progress. pt plans to go home and has his spouse to assist him. Goals Bed Mobility Goal Independent Transfer Goal Independent Gait Goal Independent Gait Distance 200 Other Goals up/down 3 steps L rail SBA; up/down 3 steps without rails CGA Frequency of Treatment Frequency Of Treatment Twice a Day Treatment Plan Physical Therapy Treatment Plan Bed Mobility Training,Transfer Training,Gait Training, Therapeutic Exercise,Balance Retraining,Post Op Education, Discharge Planning,Hot or Cold Pack,Neuromuscular Re-ed, Coordination Retraining,Manual Therapy Precautions Cervical Spine Precautions Soft Collar for Comfort,No Heavy Lifting,Log Roll Recommendations To Nursing Amount of Assist Needed 1 Person Assist Discharge Recommendations PT Discharge Recommendations Home with Assistance Transportation Needs at Discharge Private Vehicle
--- NOTE | 2021-04-24 14:15 | PT.IPTN ---
Current Diagnoses Other spondylosis with radiculopathy, cervical region (04/23/21) Spinal stenosis, cervical region (04/23/21) Surgery Performed Operation Date: 04/23/21 13:15 Actual Procedures p C4-5, C5-6, C6-7 ACDF w/anterior instrumentation - Dc Mehta MD Physical Therapy Treatment Note M2 PT-IP Current Condition Start: 04/24/21 12:54 Freq: NEEDED Status: Active Protocol: Document 04/24/21 11:20 AB (Rec: 04/24/21 13:07 AB [email or web address]) Physical Therapy Current Condition Current Condition Evaluation Date 04/24/21 Treatment Diagnosis s/p C4-7 ACDF; difficulty in walking Precautions Cervical Spine Precautions Soft Collar for Comfort,No Heavy Lifting,Log Roll Other Precautions falls, O2 sat M3 PT-IP Subjective Start: 04/24/21 12:54 Freq: NEEDED Status: Active Protocol: Document 04/24/21 14:15 AB (Rec: 04/24/21 15:07 AB [email or web address]) Subjective Physical Therapy Visit Type Type Treatment Note Visit Start Time 14:15 Visit Stop Time 14:35 Total Visit Minutes 20 Number of MOTORCYCLE ENGINE ASSEMBLER Visits 0 Physical Therapy Visit Comments Patient Comments pt is agreeable to do PT Patient Goals pt is agreeable to do PT M4 PT-IP Mobility and Gait Start: 04/24/21 12:54 Freq: NEEDED Status: Active Protocol: Document 04/24/21 14:15 AB (Rec: 04/24/21 15:07 AB [id number]) PT-Bed Mobility Assessment Rolling Type of Rolling Log Rolling Level of Assist Standby Assistance Supine to Sit Supine to Sit Standby Assistance PT-Transfer Assessment Sit to and From Stand Sit to and from Stand Standby Assistance Equipment Transfer Assistive Device Gait Belt Orthotic/Prosthetic Devices or Brace: Yes Transfers Transfer Destination Toilet Transfer Technique ambulated Transfer Ability Level of Assist Standby Assistance,Contact Guard Assistance,1 Person Assistance,Use of Upper Extremities Comments Mobility Comments pt found sitting on chair leaning forward but asleep. woke pt up and educated on safety. pt continues to be very sleepy. O2 sat wtih 2L/ min O2 88-90% . HR 100. agreed to do PT. completed sit to stand SBA to CGA and ambulated in room ~ 40 ft without AD SBA to CGA and cues for safety. ataxic gait and cues for steadiness. instructed pt to sit on EOB and advised to just lay down in bed for safety as pt keeps dozing off. O2 sat after ambulation with O2 on: 87% cued for deep breathing. HR: 214. pt requested to use the toilet. rested first before getting up with O2 sat 89% HR 106. pt SBA to CGA for ambulation to the toilet without AD, SBA to maintain standing balance while using the urinal. completed ambulation towards the sink without AD SBA to CGA and completed handwashing. ambulated to the bed SBA and completed sit to supine SBA. positioned pt in bed. call light and table placed within reach. O2 sat at end of tx session: 89-90% HR: 100 bpm. Gait Assessment Gait Gait Assistance Required: Standby Assistance,Contact Guard Assist Distance (Feet) 40 Able to Maintain Weight Bearing Status Yes During Gait Assistive Devices Assistive Device Gait Belt,Front Wheeled Walker Orthotic/Prosthetic Devices or Brace: Yes M5 PT-IP Objective Assessments Start: 04/24/21 12:54 Freq: NEEDED Status: Active Protocol: Document 04/24/21 11:20 AB (Rec: 04/24/21 13:07 [facility] Orientation Orientation/Cognition Level of Alertness Lethargic Orientation Name,Place,Situation Safety Awareness Decreased Safety Awareness Memory Description Short Term Impaired Gross Range of Motion Lower Extremity ROM Assessment Within Functional Limits Strength Lower Extremity Strength Assessment Within Functional Limits Coordination Assessment Gross Coordination Gross Coordination WNL Muscle Tone Muscle Tone WNL Yes M6 PT-IP Treatment Start: 04/24/21 12:54 Freq: NEEDED Status: Active Protocol: Document 04/24/21 14:15 AB (Rec: 04/24/21 15:07 AB [email or web address]) Physical Therapy Treatment Education Education Provided Safety M7 PT-IP Assessment and Plan Start: 04/24/21 12:54 Freq: NEEDED Status: Active Protocol: Document 04/24/21 14:15 AB (Rec: 04/24/21 15:07 AB [email or web address]) PT Summary Assessment and Plan Potential Rehabilitation Potential Fair Summary Impairments Pain,ROM,Strength,Balance, Coordination,Sensation,Tone, Cognition,Bed Mobility, Transfers,Gait,Activity Tolerance Progress Towards Goals Slow Progress - Other Assessment Summary pt requiring SBA to CGA with mobility but has decrease safety awareness affecting independence. pt continue to be drowsy and sleepy. O2 sat also decreases to 87% with 2L/ min O2 and HR to 214. will continue to assess progress for safe d/c plan. pt plans to go home and spouse to assist him. Goals Bed Mobility Goal Independent Transfer Goal Independent Gait Goal Independent Gait Distance 200 Other Goals up/down 3 steps L rail SBA; up/down 3 steps without rails CGA Days to Meet Goals 5 Frequency of Treatment Frequency Of Treatment Twice a Day Treatment Plan Physical Therapy Treatment Plan Bed Mobility Training,Transfer Training,Gait Training, Therapeutic Exercise,Balance Retraining,Post Op Education, Discharge Planning,Hot or Cold Pack,Neuromuscular Re-ed, Coordination Retraining,Manual Therapy Precautions Cervical Spine Precautions Soft Collar for Comfort,No Heavy Lifting,Log Roll Recommendations To Nursing Amount of Assist Needed 1 Person Assist Discharge Recommendations PT Discharge Recommendations Home with Assistance Transportation Needs at Discharge Private Vehicle
--- NOTE | 2021-04-24 17:00 | DI.RAD.S_ITS ---
PROCEDURE: XR CHEST 1V INDICATIONS: hypoxia TECHNIQUE: One view of the chest was acquired. COMPARISON: None. FINDINGS: Surgical changes and devices: None. Lungs and pleura: On this semiupright portable chest examination, no large pneumothorax or large pleural effusions are seen. Mild, streaky opacities are seen at the lung bases, left worse than right. Mediastinum: Mediastinal contours appear normal. Heart size is normal. Bones and chest wall: No suspicious bony lesions. Age-appropriate bony degenerative changes are seen. Overlying soft tissues appear unremarkable. IMPRESSION: Presumed atelectasis is seen at the lung bases. Differential diagnosis includes minimal/early infiltrate, yet this is considered to be less likely. If there is clinical concern for a developing pulmonary process, a short-term followup chest series (with PA and lateral views, performed in deep inspiration) is suggested for further evaluation. Dictated by: Missael Smith M.D. on 04/24/2021 at 16:15 Approved by: Missael Smith M.D. on 04/24/2021 at 16:16
--- NOTE | 2021-04-24 17:01 | P.CONS_ITS ---
History of Present Illness Consult details Date Patient Seen: 04/24/21 Time Patient Seen: 16:00 Chief complaint: Neck pain Reason for consult: tachycardia Requesting provider: Dc Mehta Narrative: Patient is 66-year-old male with history of type 2 diabetes managed with oral meds, hypertension, hyperlipidemia, WOODY, on CPAP who is status post elective cervical fusion on 04/23/[address] Mehta. He was supposed to be d ischarged today but this afternoon noted to be quite somnolent and also to tachycardic and mildly hypoxic. Heart rate has been in low 100s and up to 120 with getting up to bathroom. His EKG showed sinus tachycardia without ischemic changes. He is on 2 L O2 with O2 sat 91-92%. He has been getting oxycodone 10 mg IR as needed postop. Patient was not taking opioid pain relievers at home. He was on gabapentin. He is on glimepiride for blood sugar control. Glucose was 190 this morning. He has no history of CAD. He has chronic intermittent cough but denies feeling acutely sick preop or having fever or acute cough. Meds Home Medications and Allergies Home Medications Medication Instructions Recorded Confirmed Type aspirin 81 mg tablet,delayed 81 mg PO DAILY 11/16/20 04/23/21 History release (Adult Low Dose Aspirin) atorvastatin 20 mg tablet 20 mg PO DAILY 11/16/20 04/23/21 History metformin 1,000 mg tablet 1,000 mg PO BID 11/16/20 04/23/21 History gabapentin 300 mg capsule 300 mg PO .COMPLEX #90 cap 02/17/21 04/23/21 Rx glimepiride 4 mg tablet 4 mg PO QAM 04/20/21 04/23/21 History lisinopril 5 mg tablet 5 mg PO DAILY 04/20/21 04/23/21 History acetaminophen 500 mg capsule 500 mg PO Q4-6H PRN #90 cap MDD 6 04/24/21 Rx tabs docusate sodium 100 mg capsule 100 mg PO BID PRN #60 cap 04/24/21 Rx (DOK) hydromorphone 2 mg tablet 2 mg PO Q4-6H PRN #14 tab 04/24/21 Rx (Dilaudid) hydroxyzine pamoate 25 mg capsule 25 mg PO Q4HR PRN #60 cap 04/24/21 Rx oxycodone 5 mg tablet 5 - 10 mg PO Q3-6H PRN #42 tab 04/24/21 Rx Allergies Allergy/AdvReac Type Severity Reaction Status Date / Time adhesive tape Allergy Intermediate ITCHING Verified 04/23/21 08:38 Iodine and Iodide Containing Allergy Intermediate Hives Verified 04/23/21 08:38 Produc Review of Systems Review of Systems Narrative: No chest pains, dyspnea. Positive for chronic intermittent cough. Positive for migraine headaches. Positive for postop neck pain. Exam Vital Signs (past 8 hours): - 04/24/21 11:30 04/24/21 15:15 Temperature 97.3 F L 98.5 F Pulse Rate 66 102 H Respiratory Rate 14 18 Blood Pressure 148/87 H 139/74 Pulse Oximetry 89 L 92 Oxygen Delivery Method Nasal Cannula,CPAP Oxygen Flow Rate 2 Narrative Exam Narrative: General: He is now alert male in moderate discomfort. HEENT: Anicteric Neck: Cervical collar Lungs: Clear to auscultation Heart: Normal S1 and S2, mild aortic systolic murmur, regular rate and rhythm Abdomen: Soft, nontender, no HSM Extremities: No leg edema Neurological: Oriented, affect normal/appropriate, speech normal, moves all 4 extremities well Objective Labs Labs: Patient is 66-year-old male with diabetes, hypertension, WOODY status post elective cervical fusion having somnolence, tachycardia and hypoxia postop. 1. Postop difficulty with arousal -likely secondary to oxycodone for postop pain, patient was not on opioids prior to surgery, currently alert and oriented -reduce oxycodone dosing to 5-10 mg IR q.4 hours as needed. Use lower dose for moderate pain. -continue patient's usual gabapentin -check CBG 2. Postop hypoxia -patient not tachypneic, O2 sat 89% room air and 92% on 2 L -this is likely postop atelectasis, no fever or acute cough to suggest pneumonia, PE also on likely so soon after surgery -obtain portable chest x-ray -incentive spirometry 3. Tachycardia -EKG shows mild sinus tachycardia, no ischemic changes -elevated heart rate likely secondary to acute postop pain 4. Diabetes -hyperglycemic preop, patient on glimepiride 4 mg q.a.m. and metformin 1000 mg b.i.d. -start low-dose sliding scale insulin -continue patient's low-dose aspirin and atorvastatin 5. Hypertension -continue patient's lisinopril 6. Obstructive sleep apnea -continue patient's CPAP while he is asleep
[2021-04-24 17:34] LABS: Add Manual Diff / Slide Review NO; Basophils Absolute Auto 0 /uL (0-100); Basophils Percent Auto 0.2 % (0-2); Eosinophils Absolute Auto 100 /uL (0-450); Eosinophils Percent Auto 0.6 % (2-4); Hematocrit 38.2 % (41-53); Hemoglobin 13.1 g/dL (13.5-17.5); Lymphocytes Absolute Auto 2300 /uL (1100-4500); Lymphocytes Percent Auto 16.8 % (25-40); Mean Corpuscular HGB Conc 34.3 % (30-36); Mean Corpuscular Hemoglobin 30.9 PG (26-34); Mean Corpuscular Volume 90.1 fL (80-100); Monocytes Absolute Auto 1900 /uL (0-900); Monocytes Percent Auto 14.1 % (3-14); Neutrophils Absolute Auto 9300 /uL (1500-7000); Neutrophils Percent Auto 68.3 % (50-75); Platelet Count 216 X10^3/uL (150-400); Red Blood Cell Count 4.24 X10^6/uL (4.5-5.9); Red Cell Distribution Width 12.9 % (11.6-14.8); White Blood Cell Count 13.6 X10^3/uL (4.5-11.0)
[2021-04-24 17:45] LABS: BUN Creatinine Ratio 12.3 (6-22); Blood Urea Nitrogen 10 mg/dL (9-20); Calcium 10.2 mg/dL (8.4-10.2); Carbon Dioxide 30 mmol/L (22-32); Chloride 99 mmol/L (98-107); Estimated Glomerular Filt Rate > 60.0 mL/min (>60); Glucose 133 mg/dL (80-110); HEMOLYSIS < 15 (0-50); Potassium 4.1 mmol/L (3.4-5.1); Sodium 138 mmol/L (137-145)
[2021-04-24] MEDS: SENNOSIDES 8.6 MG TABLET 17.2 MG PO (22:44)
[2021-04-24] MEDS: GABAPENTIN 300 MG CAPSULE PO (22:45)
--- NOTE | 2021-04-25 00:05 | PC.NURSE ---
pt got a stat order for EKG. tele placed. pt has been taking tylenol for pain. he refused oxycodone. pt's HR remain tachy 100-115. pt reports he feels like there is a lump in his throat everytime he swallows. notified provider. encouraged pt to have some ice chips/popsicle. pt able to swallow his pills and food, not coughing, just painful to swallow. kept pt on 3.5L 94%, 89% on RA. Incentive spirometer 2250
[2021-04-25 03:00] VITALS: BP 147/93; PULSE 105; RESP 16; TEMP 36.7; O2SAT 93
[2021-04-25] MEDS: ACETAMINOPHEN 325 MG TABLET 650 MG PO ×2 (05:53→12:34)
[2021-04-25] MEDS: hydrOXYzine pamoate 25 MG CAPSULE PO (05:54)
[2021-04-25 07:00] VITALS: BP 154/104; PULSE 102; RESP 18; TEMP 36; O2SAT 95
[2021-04-25] MEDS: INSULIN LISPRO 100 UNIT/ML 3ML VIAL SUBCUT ×2 (08:54→12:20)
[2021-04-25 08:59] VITALS: BP 154/104; PULSE 102
[2021-04-25] MEDS: lisinopriL 5 MG TABLET PO (08:59)
[2021-04-25] MEDS: GABAPENTIN 300 MG CAPSULE PO (08:59)
[2021-04-25] MEDS: ATORVASTATIN 20 MG TABLET PO (08:59)
[2021-04-25] MEDS: DOCUSATE 100 MG CAPSULE PO (09:00)
[2021-04-25] MEDS: METFORMIN HCL 500 MG TABLET 1000 MG PO (09:00)
[2021-04-25] MEDS: GLIMEPIRIDE 2 MG TABLET 4 MG PO (09:03)
--- NOTE | 2021-04-25 09:54 | P.PN_ITS ---
Exam Vital Signs (past 8 hours): - 04/25/21 03:00 04/25/21 07:00 04/25/21 08:59 Temperature 98.1 F 96.8 F L Pulse Rate 105 H 102 H 102 H Respiratory Rate 16 18 Blood Pressure 147/93 H 154/104 H 154/104 H Pulse Oximetry 93 95 Oxygen Delivery Method Nasal Cannula Oxygen Flow Rate 3.5 Objective Labs Result Diagrams: 04/24/21 17:10 04/24/21 17:10 Labs: Laboratory Results - last 24 hr 04/24/21 04/24/21 17:10 17:10 WBC 13.6 H RBC 4.24 L Hgb 13.1 L Hct 38.2 L MCV 90.1 MCH 30.9 MCHC 34.3 RDW 12.9 Plt Count 216 Neut % (Auto) 68.3 Lymph % (Auto) 16.8 L [place] % (Auto) 14.1 H Eos % (Auto) 0.6 L Baso % (Auto) 0.2 Neut # (Auto) 9300 H Lymph # (Auto) 2300 [place] # (Auto) 1900 H Eos # (Auto) 100 Baso # (Auto) 0 Sodium 138 Potassium 4.1 Chloride 99 Carbon Dioxide 30 BUN 10 Creatinine 0.81 Estimated GFR > 60.0 BUN/Creatinine Ratio 12.3 Glucose 133 H Calcium 10.2 PFSH Medical History Arthritis BPH w urinary obs/LUTS Cervical radiculopathy Degenerative tear of acetabular labrum of left hip Depression Diabetes Facet arthropathy, cervical Glucosuria Greater trochanteric bursitis of right hip Hearing impaired HLD (hyperlipidemia) HTN (hypertension) Kidney stones Lumbar stenosis with neurogenic claudication WOODY on CPAP Sciatica Surgical History H/O elbow surgery H/O hand surgery H/O shoulder surgery H/O: knee surgery History of arthroscopy of left shoulder History of bunionectomy of right great toe History of foot surgery History of surgery History of vasectomy Hx of bilateral cataract extraction Hx of colonoscopy Hx of nasal septoplasty Family History Father Stroke Mother Congestive heart failure Sister Cancer Social History household members: spouse Smoking Status: Former smoker alcohol intake: current Assessment & Plan Assessment & Plan narrative: Patient is admitted after surgery. POD#2 s/p C4-7 ACDF. Patient has been stable and progressing with physical therapy. Patient is neurovascularly intact on exam. Patient has no signs or symptoms of DVT. Patient's dressing is clean dry and intact. He will be discharged to home. Quality VTE Deep Vein Thrombosis/Pulmonary Embolism Present on Admission: No
--- NOTE | 2021-04-25 10:21 | PT.IPTN ---
Addendum entered and electronically signed by Aarti Worthy, PT 04/25/21 11:49: VS were stable after activity: BP 126/81 HR 115 Spo2 94% RA. Original Note: Current Diagnoses Other spondylosis with radiculopathy, cervical region (04/23/21) Spinal stenosis, cervical region (04/23/21) Surgery Performed Operation Date: 04/23/21 13:15 Actual Procedures p C4-5, C5-6, C6-7 ACDF w/anterior instrumentation - Dc Mehta MD Physical Therapy Treatment Note M2 PT-IP Current Condition Start: 04/24/21 12:54 Freq: NEEDED Status: Active Protocol: Document 04/24/21 11:20 AB (Rec: 04/24/21 13:07 AB [id number]) Physical Therapy Current Condition Current Condition Evaluation Date 04/24/21 Treatment Diagnosis s/p C4-7 ACDF; difficulty in walking Precautions Cervical Spine Precautions Soft Collar for Comfort,No Heavy Lifting,Log Roll Other Precautions falls, O2 sat M3 PT-IP Subjective Start: 04/24/21 12:54 Freq: NEEDED Status: Active Protocol: Document 04/25/21 10:21 AW (Rec: 04/25/21 11:49 AW [id number]) Subjective Physical Therapy Visit Type Type Treatment Note Visit Start Time 10:05 Visit Stop Time 10:21 Total Visit Minutes 16 Number of [employer]ISS[employer] SUPERVIS[employer] Visits 0 Physical Therapy Visit Comments Patient Comments Pt is drowsy but rousable, agreeable to work with PT. Therapy Pain Assessment Pain When Pain Assessed At Rest Pain Present Pain Present Denied Pain Location Bilateral Neck Intensity 5 Scale Used Numeric (0 - 10) Pain Management Techniques Modification of Treatment,Re- positioning,Timing of Activity with Medications M4 PT-IP Mobility and Gait Start: 04/24/21 12:54 Freq: NEEDED Status: Active Protocol: Document 04/25/21 10:21 AW (Rec: 04/25/21 11:49 AW [id number]) PT-Transfer Assessment Sit to and From Stand Sit to and from Stand Standby Assistance Equipment Transfer Assistive Device Gait Belt Orthotic/Prosthetic Devices or Brace: Yes Transfers Transfer Destination Chair Transfer Technique ambulated Transfer Ability Level of Assist Standby Assistance,Contact Guard Assistance,1 Person Assistance,Use of Upper Extremities Comments Mobility Comments Pt was sitting up on window seat as PT arrived. SpO2 95% on room air, BP 128/78 HR 109. He was drowsy but improved with mobility as he stood from the seat SBA and ambulated around the unit a total of 120 feet without AD SBA with two lateral (+) LOB requiring CGA to recover. On return to the room, pt transferred back to the window seat SBA. Gait Assessment Gait Gait Assistance Required: Standby Assistance,Contact Guard Assist Distance (Feet) 120 Able to Maintain Weight Bearing Status Yes During Gait Assistive Devices Assistive Device None,Gait Belt Orthotic/Prosthetic Devices or Brace: Yes Gait Deviations General Gait Pattern Ataxic,Decreased Stride Length ,Decreased Feet Clearance, Lateral Trunk Lean Factors Limiting Gait Function Factors Limiting Gait Function Decreased Activity Tolerance, Decreased Strength,Difficulty Following Directions,Limited Range of Motion,Pain,Poor Balance,Poor Safety Awareness Comments Gait Comments Proprioception appears poor in gait. Pt has significant lateral lean in ipsilateral stance phase. See mobility comments for further details. PT-Balance Assessment Sitting Balance and Reactions Static Sitting Balance Ability Good Dynamic Sitting Balance Ability Good Standing Balance and Reactions Static Standing Balance Ability Good Dynamic Standing Balance Ability Fair Device Used without AD M5 PT-IP Objective Assessments Start: 04/24/21 12:54 Freq: NEEDED Status: Active Protocol: Document 04/24/21 11:20 AB (Rec: 04/24/21 13:07 AB [id number]) Orientation Orientation/Cognition Level of Alertness Lethargic Orientation Name,Place,Situation Safety Awareness Decreased Safety Awareness Memory Description Short Term Impaired Gross Range of Motion Lower Extremity ROM Assessment Within Functional Limits Strength Lower Extremity Strength Assessment Within Functional Limits Coordination Assessment Gross Coordination Gross Coordination WNL Muscle Tone Muscle Tone WNL Yes M6 PT-IP Treatment Start: 04/24/21 12:54 Freq: NEEDED Status: Active Protocol: Document 04/25/21 10:21 AW (Rec: 04/25/21 11:49 AW [id number]) Physical Therapy Treatment Education Education Provided Precautions,Safety M7 PT-IP Assessment and Plan Start: 04/24/21 12:54 Freq: NEEDED Status: Active Protocol: Document 04/25/21 10:21 AW (Rec: 04/25/21 11:49 AW [id number]) PT Summary Assessment and Plan Summary Impairments Pain,ROM,Strength,Balance, Coordination,Sensation,Tone, Cognition,Bed Mobility, Transfers,Gait,Activity Tolerance Progress Towards Goals Slow Progress - Other Assessment Summary Pt continues to require SBA to CGA for gait with what appears to be impaired proprioception and two (+) LOB this AM requiring CGA to recover. Pt states his will be with him if he discharges this evening but that she will be working tomorrow. Pt identifies no other source of support. Goals Bed Mobility Goal Independent Transfer Goal Independent Gait Goal Independent Gait Distance 200 Other Goals up/down 3 steps L rail SBA; up/down 3 steps without rails CGA Days to Meet Goals 5 Frequency of Treatment Frequency Of Treatment Twice a Day Treatment Plan Physical Therapy Treatment Plan Bed Mobility Training,Transfer Training,Gait Training, Therapeutic Exercise,Balance Retraining,Post Op Education, Discharge Planning,Hot or Cold Pack,Neuromuscular Re-ed, Coordination Retraining,Manual Therapy Precautions Cervical Spine Precautions Soft Collar for Comfort,No Heavy Lifting,Log Roll Recommendations To Nursing Amount of Assist Needed Standby Assistance Discharge Recommendations PT Discharge Recommendations Home with Assistance Transportation Needs at Discharge Private Vehicle
[2021-04-25 11:00] VITALS: BP 111/60; PULSE 100; RESP 18; TEMP 36.2; O2SAT 93
--- NOTE | 2021-04-25 13:57 | PC.NURSE ---
Pt is ready for discharge home. Spouse Kellie will be picking him up. Went over d/c instructions with Pt-discussed d/c meds, time of last dose, reviewed stroke education, s/s of infection, showering and dressing change if needed, follow neck precautions, no driving while on narcotics, drink plenty of fluids to prevent constipation or dehydration, and follow up appointments. Pt denies further questions and will be ready to be taken out via w/c by [employer]IN[employer]CE WORKER to POV with Spouse and all belongings when Spouse arrives.
--- NOTE | 2021-04-25 16:52 | PM.PN.1 ---
Subjective Subjective Date Patient Seen: 04/25/21 Interval history: Patient was seen for medical consult yesterday due to tachycardia, hypoxia and difficulty with arousal. Chest x-ray consistent with atelectasis. O2 sat 93% on room air this morning. Tachycardia is stable with heart rates around 100 in regular rhythm. He is having significant postop pain. He is now able to stay alert with adjustment in the postop pain medications. Exam Vital Signs (past 8 hours): - 04/25/21 08:59 04/25/21 11:00 Temperature 97.1 F L Pulse Rate 102 H 100 H Respiratory Rate 18 Blood Pressure 154/104 H 111/60 Pulse Oximetry 93 Oxygen Delivery Method Nasal Cannula Oxygen Flow Rate 3.5 Objective Labs Result Diagrams: 04/24/21 17:10 04/24/21 17:10 Labs: Laboratory Results - last 24 hr 04/24/21 04/24/21 17:10 17:10 WBC 13.6 H RBC 4.24 L Hgb 13.1 L Hct 38.2 L MCV 90.1 MCH 30.9 MCHC 34.3 RDW 12.9 Plt Count 216 Neut % (Auto) 68.3 Lymph % (Auto) 16.8 L [place] % (Auto) 14.1 H Eos % (Auto) 0.6 L Baso % (Auto) 0.2 Neut # (Auto) 9300 H Lymph # (Auto) 2300 [place] # (Auto) 1900 H Eos # (Auto) 100 Baso # (Auto) 0 Sodium 138 Potassium 4.1 Chloride 99 Carbon Dioxide 30 BUN 10 Creatinine 0.81 Estimated GFR > 60.0 BUN/Creatinine Ratio 12.3 Glucose 133 H Calcium 10.2 PFSH Medical History Arthritis BPH w urinary obs/LUTS Cervical radiculopathy Degenerative tear of acetabular labrum of left hip Depression Diabetes Facet arthropathy, cervical Glucosuria Greater trochanteric bursitis of right hip Hearing impaired HLD (hyperlipidemia) HTN (hypertension) Kidney stones Lumbar stenosis with neurogenic claudication WOODY on CPAP Sciatica Surgical History H/O elbow surgery H/O hand surgery H/O shoulder surgery H/O: knee surgery History of arthroscopy of left shoulder History of bunionectomy of right great toe History of foot surgery History of surgery History of vasectomy Hx of bilateral cataract extraction Hx of colonoscopy Hx of nasal septoplasty Family History Father Stroke Mother Congestive heart failure Sister Cancer Social History household members: spouse Smoking Status: Former smoker alcohol intake: current Assessment & Plan Assessment & Plan narrative: Patient is medically stable for discharge. Continue incentive spirometry at home for atelectasis. Quality VTE Deep Vein Thrombosis/Pulmonary Embolism Present on Admission: No
== END 2021-04-25 15:00 | disposition home or self-care (01) | DRG 472 ==
PROVIDERS: Internal Medicine; Admitting Provider Orthopaedic Surgery Orthopaedic Surgery of the Spine; PCP Nurse Practitioner; Referring Provider Orthopaedic Surgery Orthopaedic Surgery of the Spine; Visit Provider Orthopaedic Surgery Orthopaedic Surgery of the Spine
PROC: 0RG20A0 Fusion of 2 or more Cervical Vertebral Joints with Interbody Fusion Device, Anterior Approach, Anterior Column, Open Approach (ICD-10-PCS; principal; 2021-04-23 13:15)
DX: M47.22 Other spondylosis with radiculopathy, cervical region (principal); J95.89 Other postprocedural complications and disorders of respiratory system, not elsewhere classified; R09.02 Hypoxemia; R00.0 Tachycardia, unspecified; M48.02 Spinal stenosis, cervical region; E11.9 Type 2 diabetes mellitus without complications; Z79.84 Long term (current) use of oral hypoglycemic drugs; G47.33 Obstructive sleep apnea (adult) (pediatric); E66.9 Obesity, unspecified; E78.5 Hyperlipidemia, unspecified; I10 Essential (primary) hypertension; Z68.31 Body mass index [BMI] 31.0-31.9, adult; Z20.822 Contact with and (suspected) exposure to COVID-19; Z87.891 Personal history of nicotine dependence
CPT/HCPCS: 36415; 71045; 72040; 76000; 80048; 82962; 85025; 93005; 93010; 97162; 97165; 97530; 97535; C1776; J0330; J0690; J1170; J1815; J2250; J2405; J2704; J3010